=== PATIENT | male | born 1965 | race Caucasian/White ===

== ENCOUNTER 2019-09-14 09:36 | Inpatient (IN) ==
--- OUTSIDE RECORDS SUMMARY | 2019-09-14 09:38 | External Medical Summary | Continuity of Care Document ---
:1965 Author Name Daniele Bills Address Unavailable Unavailable , Care Team Providers Name Role Phone Karmen Bills Unavailable [email or web address] Unavailable Unavailable Unavailable Unavailable Unavailable Assessments Assessed Problems:Bilateral inguinal hernia Problems Bilateral inguinal hernia (550.92) (K40.20) Allergies and Adverse Reactions No Known Drug Allergies (Allergy) Medications [id number] 5000 MG Oral Packet Start: 03-Feb-2014 Refills: 0 Procedures Procedures not documented Immunizations Immunizations not documented Family History Unknown Family Member Family history of Diabetes Mellitus (V18.0) Status: Active Comments: Family History Social History - Smoking Status Never smoker Interventions Discussion/SummaryPost-operative inguinal herniorrhaphy. The patient is doing well, no problems reported and the patient is satisfied. We discussed resumption of normal activities/return to work type of issues. Follow up will be prn. Plan of Treatment Planned Observations Planned Goals not documented Results No Known Results Results not documented Encounters Appointment; Raymond Peraza M.D. 05-May-2014 11:00 Encounter Diagnosis: Problem not documented
[2019-09-14] MEDS ORDERED: SODIUM CHLORIDE 0.9% 1000ML 1,000 ML IV ONE (10:08)
[2019-09-14 10:53] LABS: Basophils # (auto) 0.04 K/uL (0-0.2); Basophils % (auto) 0.5 %; Eosinophils # (auto) 0.02 K/uL (0-0.5); Eosinophils % (auto) 0.2 %; Hematocrit (blood only) 50.6 % (42-52); Hemoglobin 18.5 g/dL (14.0-18.0); Immature Granulocytes # (auto) 0.04 K/uL (0.00-0.02); Immature Granulocytes % (auto) 0.5 %; Lymphocytes # (auto) 0.99 K/uL (1.2-3.4); Lymphocytes % (auto) 11.5 %; Mean Corpuscular Hemoglobin 33.4 pg (25-34); Mean Corpuscular Hgb Conc 36.6 g/dL (32-36); Mean Corpuscular Volume 91.3 fL (80-100); Mean Platelet Volume 9.3 fL (7.4-10.4); Monocytes # (auto) 0.55 K/uL (0.11-0.59); Monocytes % (auto) 6.4 %; Neutrophils # (auto) 6.96 K/uL (1.4-6.5); Neutrophils % (auto) 80.9 %; Platelet Count 226 K/uL (130-400); RDW Coefficient of Variation 12.6 % (11.5-14.5); RDW Standard Deviation 42.4 fL (36.4-46.3); Red Blood Count 5.54 M/uL (4.7-6.1)
[2019-09-14 11:17] LABS: Albumin Level 4.1 gm/dl (3.4-5.0); BUN Creatinine Ratio 11.5 (10-20); Calcium 9.3 mg/dl (8.5-10.1); Creatinine Clr Calc Pharmacy 91.6 ml/min; Est GFR (African American) 71.7; Est GFR (Non-African American) 61.9; Potassium 3.9 mmol/L (3.5-5.1)
[2019-09-14 11:20] LABS: Albumin Globulin Ratio 1.1 (0.9-2); Bilirubin,Total 0.4 mg/dl (0.2-1); Globulin 3.9 gm/dl (2.5-4.0)
[2019-09-14] MEDS ORDERED: IOVERSOL 100ml IV PRN (11:44)
--- NOTE | 2019-09-14 12:07 | CT Scan Report ---
ABDOMEN AND PELVIS CT WITH IV CONTRAST CT DOSE: 1577.65 mGy.cm HISTORY: L buttock induration/erythema to lower back TECHNIQUE: Multiaxial CT images of the abdomen and pelvis were performed following the use of intrave nous contrast. A dose lowering technique was utilized adhering to the principles of ALARA. COMPARISON STUDY: None. FINDINGS: The lung bases are clear. No pneumoperitoneum. No pneumatosis. No suspicious lytic are melissa tic osseous lesions. Tiny fat-containing supraumbilical hernia. Hepatic steatosis. The gallbladder, s pleen, pancreas, and adrenal glands are unremarkable. No retroperitoneal lymphadenopathy. A 1 cm exop hytic intermediate density lesion within the interpolar region of the left kidney best seen on image 194. This is indeterminate and could represent a complex cyst or renal mass. Right-sided nephrolithia sis with the largest stone within the lower pole measuring 7 mm. No ureteral stones. No hydronephrosi s. Normal bladder. Subcentimeter inguinal lymph nodes do not meet CT criteria for pathologic involvem ent. A few colonic diverticula. No evidence for diverticulitis. No bowel wall thickening or obstructi on. Normal appendix. Mild lower back, gluteal, and inguinal subcutaneous fat stranding with mild left gluteal skin thickening. No loculated fluid collections to suggest an abscess. No radiopaque foreign bodies. No soft tissue masses. IMPRESSION: 1. Mild lower back, gluteal, and inguinal subcutaneous fat stranding with mild left gluteal skin thi ckening. No loculated fluid collections to suggest an abscess. No radiopaque foreign bodies. No soft tissue masses. This is nonspecific and could be due to a diffuse edematous state or cellulitis. 2. A 1 cm exophytic intermediate density lesion within the left kidney. This could represent a hyperd ense cyst or renal mass. Follow-up nonemergent renal ultrasound is recommended for further evaluation . 3. Right-sided nephrolithiasis. No hydronephrosis. Electronically signed by: Stephan Rios M.D. 09/14/2019 12:05 PM
[2019-09-14] MEDS ORDERED: VANCOMYCIN CONSULT ACTIVE PRN ×2 (12:58→14:05)
[2019-09-14] MEDS ORDERED: PIPERACILLIN/TAZOBACTAM 4.5 GM/120 ML BAG IV ONE (12:58)
[2019-09-14] MEDS ORDERED: PIPERACILL/TAZOBAC CONSULT ACTIVE PRN ×2 (12:58→14:05)
[2019-09-14] MEDS ORDERED: VANCOMYCIN HCL 2,750 MG in SODIUM CHLORIDE 0.9% 500 ML IV ONE (12:58)
--- NOTE | 2019-09-14 13:26 | History & Physical Report ---
Date of Service September 14, 2019 Assessment & Plan (1) Cellulitis and abscess of buttock: (2) HTN (hypertension): (3) Obesity (BMI 30-39.9): (4) Renal mass: Check sonogram of the kidneys. (5) Cellulitis: We will start the patient on IV Zosyn and vancomycin. Check blood cultures. Consult infectious disease. Add subcu heparin for DVT prophylaxis. We will add IV hydralazine PRN basis for uncontrolled hypertension. We will repeat labs in a.m. CODE STATUS full code History of Present Illness Chief Complaint: Swelling and redness of the lower back Primary Care Provider: Jose Etienne DO The patient is 54 years old obese male who is complaining of lower back redness/ swelling and pain for last 3 days. His symptoms have been progressive. He was seen at urgent care center yesterday and started on oral Bactrim and Keflex ; today he went back again for follow-up to the urgent care -[facility] and he was advised to go to the ER as his cellulitis was extending. In the ER, he was started on IV antibiotics and will be admitted for further evaluation and management. He denies any fever. No purulent discharge. No history of insect bite. No history of trauma. No prior history of any similar episode of cellulitis. His blood pressure is running high in the ER. Allergies Allergy/AdvReac Type Severity Reaction Status Date / Time bee venom protein (honey bee) Allergy Intermediate SWELLING Verified 09/14/19 10:28 Home Medications Home Medications Medication Instructions Recorded Confirmed Type cephalexin [Keflex] 500 mg PO TID 09/14/19 09/14/19 History cinnamon bark [Cinnamon] 500 mg PO DAILY 09/14/19 09/14/19 History mupirocin [Centany] 1 applic TOPICAL TID 09/14/19 09/14/19 History omega 9-tzk-xte-fish oil [Fish Oil] 2 cap PO DAILY 09/14/19 09/14/19 History sulfamethoxazole-trimethoprim 1 tab PO BID 09/14/19 09/14/19 History [Bactrim DS] Past Med/Surg History Family History Mother Diabetes Social History Feels Safe at Home: Yes Smoking Status: Never smoker Review of Systems Review of Systems: All systems reviewed & are unremarkable except as noted in HPI & below Integumentary: + rash, + erythema and + change in skin color Psychiatric: + anxiety Physical Exam Physical Exam: GENERAL : No acute distress EYES: No icterus, gaze conjugate NOSE: No evidence of epistaxis MOUTH: No lesions or candidiasis, mucosa moist NECK: Supple LUNGS: CTA B/L, no wheezes, rales or rhonchi HEART: Regular, rate controlled ABDOMEN: Soft, NT, ND, BS Present EXTREMITIES: No LE edema, pedal pulses intact NEURO: A&OX3 Constitutional: + obese and cooperative Skin: + rash, + induration and + erythema Extensive cellulitis of the lower back noted extending to the buttock area Results & Data Vital Signs (Past 12 Hours) Vital Signs Temp Pulse Pulse Resp BP BP Pulse Ox 09/14/19 12:00 91 H 20 186/91 H 98 09/14/19 09:48 98.2 F 105 H 20 193/104 H 97 Laboratory Results 09/14/19 10:37 09/14/19 10:37 09/14/19 09/14/19 09/14/19 Range/Units 10:48 10:37 10:37 WBC 8.60 (4.8-10.8) K/uL RBC 5.54 (4.7-6.1) M/uL Hgb 18.5 H (14.0-18.0) g/dL Hct 50.6 (42-52) % MCV 91.3 (80-100) fL MCH 33.4 (25-34) pg MCHC 36.6 H (32-36) g/dL RDW Std Deviation 42.4 (36.4-46.3) fL RDW Coeff of Cristy 12.6 (11.5-14.5) % Plt Count 226 (130-400) K/uL MPV 9.3 (7.4-10.4) fL Immature Gran % (Auto) 0.5 % Neut % (Auto) 80.9 % Lymph % (Auto) 11.5 % Gilliam % (Auto) 6.4 % Eos % (Auto) 0.2 % Baso % (Auto) 0.5 % Immature Gran # (Auto) 0.04 H (0.00-0.02) K/uL Neut # (Auto) 6.96 H (1.4-6.5) K/uL Lymph # (Auto) 0.99 L (1.2-3.4) K/uL Gilliam # (Auto) 0.55 (0.11-0.59) K/uL Eos # (Auto) 0.02 (0-0.5) K/uL Baso # (Auto) 0.04 (0-0.2) K/uL Sodium 137 (136-145) mmol/L Potassium 3.9 (3.5-5.1) mmol/L Chloride 105 (98-107) mmol/L Carbon Dioxide 23 (21-32) mmol/L Anion Gap 9.0 (3-11) BUN 15 (7-18) mg/dl Creatinine 1.30 (0.6-1.4) mg/dl Est Cr Clr Drug Dosing 91.6 ml/min Est GFR ( Amer) 71.7 Est GFR (Non-Af Amer) 61.9 BUN/Creatinine Ratio 11.5 (10-20) Glucose 164 H (70-99) mg/dl POC Lactic Acid Josh 2.83 H (0.90-1.70) mmol/L Calcium 9.3 (8.5-10.1) mg/dl Total Bilirubin 0.4 (0.2-1) mg/dl AST 42 H (15-37) U/L ALT 85 H (12-78) U/L Alkaline Phosphatase 91 (45-117) U/L Total Protein 8.0 (6.4-8.2) gm/dl Albumin 4.1 (3.4-5.0) gm/dl Globulin 3.9 (2.5-4.0) gm/dl Albumin/Globulin Ratio 1.1 (0.9-2) Diagnostic Findings ABDOMEN AND PELVIS CT WITH IV CONTRAST CT DOSE: 1577.65 mGy.cm HISTORY: L buttock induration/erythema to lower back TECHNIQUE: Multiaxial CT images of the abdomen and pelvis were performed followi ng the use of intravenous contrast. A dose lowering technique was utilized adhering to the principles of ALARA. COMPARISON STUDY: None. FINDINGS: The lung bases are clear. No pneumoperitoneum. No pneumatosis. No suspicious lytic are blastic osseous lesions. Tiny fat-containing supraumbilical hernia. Hepatic steatosis. The gallbladder, spleen, pancreas, and adrenal glands are unremarkable. No retroperitoneal lymphadenopathy. A 1 cm exophytic intermediate density lesion within the interpolar region of the left kidney best seen on image 194. This is indeterminate and could represent a complex cyst or renal mass. Right-sided nephrolithiasis with the largest stone within the lower pole measuring 7 mm. No ureteral stones. No hydronephrosis. Normal bladder. Subcentimeter inguinal lymph nodes do not meet CT criteria for pathologic involvement. A few colonic diverticula. No evidence for diverticulitis. No bowel wall thickening or obstruction. Normal appendix. Mild lower back, gluteal, and inguinal subcutaneous fat stranding with mild left gluteal skin thickening. No loculated fluid collections to suggest an abscess. No radiopaque foreign bodies. No soft tissue masses. IMPRESSION: 1. Mild lower back, gluteal, and inguinal subcutaneous fat stranding with mild left gluteal skin thickening. No loculated fluid collections to suggest an abscess. No radiopaque foreign bodies. No soft tissue masses. This is nonspecific and could be due to a diffuse edematous state or cellulitis. 2. A 1 cm exophytic intermediate density lesion within the left kidney. This could represent a hyperdense cyst or renal mass. Follow-up nonemergent renal ultrasound is recommended for further evaluation. 3. Right-sided nephrolithiasis. No hydronephrosis Code Status & VTE Plan Code Status Full code VTE Prophylaxis Plan VTE Prophylaxis will be ordered: Yes PG Care Time/CCT Total # of Minutes Spent Total Time Spent with Patient: Total time spent is greater than 50% in coordination of care (as documented) at patient's floor/unit and/or counseling patient:
[2019-09-14] MEDS ORDERED: ACETAMINOPHEN 325 MG TAB PO PRN (14:05)
[2019-09-14] MEDS ORDERED: HydrALAZINE HCL 20 MG/ML VIAL IV PRN (14:05)
[2019-09-14] MEDS ORDERED: ZOLPIDEM TARTRATE 5 MG TAB PO PRN (14:05)
[2019-09-14] MEDS ORDERED: PIPERACILLIN/TAZOBACTAM 3.375 GM in DEXTROSE 5% 100 ML IV SCH (14:05)
[2019-09-14] MEDS ORDERED: VANCOMYCIN HCL 1,000 MG in SODIUM CHLORIDE 0.9% 250 ML IV SCH (14:05)
--- NOTE | 2019-09-14 15:40 | Ultrasound Report ---
RENAL ULTRASOUND HISTORY: Renal mass, renal stone COMPARISON: Abdomen and pelvis CT 09/14/2019. FINDINGS: Right kidney: 12.4 cm. A 7 mm stone within the lower pole. No hydronephrosis. Normal corticomedullary differentiation and cortical thickness. Left kidney: 11.6 cm. An 8 mm exophytic interpolar hypoechoic lesion which likely corresponds to the CT finding. This is difficult to characterize due to its small size. No hydronephrosis. Normal cortic omedullary differentiation and cortical thickness. Bladder: No bladder wall thickening. The bilateral ureteral jets were identified. The prostate gland is mildly enlarged measuring 5.5 cm. IMPRESSION: 1. Right-sided nephrolithiasis. No hydronephrosis. 2. An 8 mm exophytic interpolar hypoechoic lesion which likely corresponds to the CT finding. This is difficult to characterize due to its small size. Follow-up nonemergent MRI recommended for further e valuation. Electronically signed by: Stephan Rios M.D. 09/14/2019 3:38 PM
[2019-09-14] MEDS: HEPARIN SOD 5,000 UNIT/0.5 ML VIAL SQ SCH ×2 (15:56→21:36)
[2019-09-14] MEDS: KETOROLAC TROMETHAMINE 10 MG TABLET PO SCH ×2 (16:10→21:11)
[2019-09-14] MEDS: LISINOPRIL/HCTZ 10/12.5MG TAB PO SCH (16:47)
--- NOTE | 2019-09-14 16:58 | Pharmacy Report ---
Pharmacy Abx Initial Consult - Date of Service September 14, 2019 - Pharmacy Dosing Scope Date of Consult: 09/14/19 Consultation requested by: Dr. Hargrove Pharmacy is consulted to initiate Vancomycin IV dosing therapy, order appropriate labs and adjust drug dose/frequency. - Subjective The patient is a 54 year old M admitted on 09/14/19 13:15. - Objective Height: 6 ft Weight: 131.2 kg Vital Signs (Past 12hrs): Vital Signs Temp Pulse Pulse Pulse Resp BP BP 09/14/19 15:40 36.8 C 86 20 156/95 H 09/14/19 15:12 172/97 H 09/14/19 14:22 36.7 C 83 16 153/100 H 09/14/19 12:00 91 H 20 186/91 H 09/14/19 09:48 36.8 C 105 H 20 193/104 H Pulse Ox 09/14/19 15:40 95 09/14/19 15:12 09/14/19 14:22 97 09/14/19 12:00 98 09/14/19 09:48 97 Lab Results (24hrs): Laboratory Tests (24 Hours) 09/14/19 09/14/19 10:37 10:37 WBC 8.60 Neut # (Auto) 6.96 H Creatinine 1.30 Est Cr Clr Drug Dosing 91.6 Micro Results: 09/14/19 13:25 Aerobic Blood Culture - Pending Blood Anaerobic Blood Culture - Pending 09/14/19 13:30 Aerobic Blood Culture - Pending Blood Anaerobic Blood Culture - Pending - Risk Factors for Resistance * Antimicrobial use within the last 90 days: Bactrim and Keflex - Assessment & Plan Assessment 54 year old M presenting to the ER with lower back redness, swelling and pain that started 3 days ago. Was seen at urgent care yesterday and was started on Keflex and Bactrim. Cellulitis began to spread. Plan Vancomycin and Zosyn for treatment of cellulitis Vancomycin IV * Estimated PK Parameters: Vd 0.61 L/kg, Trevor 0.08 hr-1, t1/2 8.7 hr * Loading dose: 2750 mg (21 mg/kg) * Maintenance dose: 1500 mg IV (11 mg/kg) every 10 hours * Goal trough level for cellulitis: 15 to 20 mcg/mL * Trough level ordered for 10/22/19 at 0330 Piperacillin/tazobactam * 4.5 g bolus administered over 30 minutes, then 4.5 g IV extended infusion every 8 hours for CrCl greater than 20 mL/min * Aggressive dosing selected due to BMI 35 or more Pharmacy will continue to follow and will adjust dose/frequency as necessary. Thank you.
--- NOTE | 2019-09-14 18:10 | Emergency Department Note ---
History of Present Illness General Chief complaint: Back Injury/Pain Stated complaint: LOWER BACK PAIN Time Seen by Provider: 09/14/19 10:01 History of Present Illness 54-year-old male who presents to emergency department for evaluation of progressively worsening pain in the lower back and buttock. The patient reports that he noticed an itch on the left buttock on Sunday. By yesterday afternoon, his reports that he started to develop redness over the area. The patient was seen at the [facility] last evening, and provided a prescription for Keflex 500 mg three times daily, and Bactrim DS one pill twice daily. The patient did take the Keflex and Bactrim DS last night before going to bed. When he awoke this morning, the reports progressively worsening pain. The patient went back to the [facility] urgent [facility] for recheck, and they reported that the infection was worsening, and recommended that he come to the emergency department for further evaluation. The patient denies any fevers or chills. He denies any known history of MRSA. He cannot recall any other injury to the buttock, and denies any prior history of boils or abscesses. He rates his discomfort a 3 out of 10 on my initial exam. Home Medications Home Medications Medication Instructions Recorded Confirmed Type cephalexin [Keflex] 500 mg PO TID 09/14/19 09/14/19 History cinnamon bark [Cinnamon] 500 mg PO DAILY 09/14/19 09/14/19 History mupirocin [Centany] 1 applic TOPICAL TID 09/14/19 09/14/19 History omega 6-mjx-snq-fish oil [Fish Oil] 2 cap PO DAILY 09/14/19 09/14/19 History sulfamethoxazole-trimethoprim 1 tab PO BID 09/14/19 09/14/19 History [Bactrim DS] Allergies Allergy/AdvReac Type Severity Reaction Status Date / Time bee venom protein (honey bee) Allergy Intermediate SWELLING Verified 09/14/19 10:28 Past Med/Surg History Medical History Renal mass Obesity (BMI 30-39.9) HTN (hypertension) Surgical History No significant past surgical history Family History Mother Diabetes Social History (Reviewed 09/14/19 @ 17:58 by Apolinar Jesus Preferred Language: Citizen Of [place] Communication Ability: Effective Event Decorator Required: No Beliefs That Will Affect Care: None marital status: Current Living Situation: Spouse current occupational status: employed Feels Safe at Home: Yes Smoking Status: Never smoker Hx Alcohol Use: No Hx Substance Use: No Review of Systems 10 system review was performed and was negative except for pertinent positives and negatives as indicated in history of present illness Physical Exam Vital Signs Vital Signs - 24 hr 09/14/19 09:48 09/14/19 12:00 Temperature 36.8 C Temperature Source Oral Sepsis Recent Fever Within 48 Hours No Sepsis Action Taken by Nursing No Action Required Pulse Rate 105 H Pulse Rate [Finger] 91 H Respiratory Rate 20 20 Respiratory Effort / Characteristics Non-Labored Spontaneous Non-Labored Spontaneous Respiratory Depth Normal Normal Respiratory Pattern Regular Blood Pressure 193/104 H Blood Pressure [Right Arm] 186/91 H Blood Pressure Mean 133 Blood Pressure Mean [Right Arm] 122 Blood Pressure Position [Right Arm] Lying Pulse Oximetry 97 98 Oxygen Delivery Method Room Air Room Air CONSTITUTIONAL: Healthy and well nourished. Alert and oriented X 3. Patient does not appear in any acute distress. HEENT: Normocephalic, atraumatic. Pupils equal, round and reactive. No scleral icterus or conjunctival injection/pallor. NECK: Full active range of motion without discomfort. RESPIRATORY: Clear to auscultation bilaterally with no wheezing, crackles, rhonchi or stridor. CARDIOVASCULAR: Regular rate and rhythm with no murmurs, rubs or gallops. GASTROINTESTINAL: Bowel sounds present in all quadrants. Abdomen is soft and nontender to palpation. MUSCULOSKELETAL: Full range of motion of all joints without discomfort. INTEGUMENTARY: Examination shows notable induration of the left medial upper buttock region. There is also significant overriding erythema of the majority of the left buttock. No obvious induration or fluctuance within the pilonidal region. The erythema extends onto the lower lumbar region. The entire region is warm and tender to palpation. HEMATOLOGIC: No ecchymosis or petechiae. PSYCHIATRIC: With attempted discussion regarding the patient's physical exam findings and condition, he gives snarky comments. His is constantly telling him to behave in order to undergo appropriate treatment. NEUROLOGIC: No focal neurologic deficits noted. Course Patient history and physical exam were performed. Nurse's notes were reviewed. Vital signs were reviewed, showing an elevated blood pressure of 193/104. He is otherwise afebrile and not tachycardic. Because of concern for intravenous access and CT imaging of the region to look for an abscess. As indicated in the physical exam section, the patient was snarky throughout this entire conversation, with his chiding the patient. Eventually relented and agreed to further work-up. IV access was established, and labs were drawn. The juan j ent refused any analgesics. Review of labs shows a left shift and bandemia without leukocytosis. A acvbc-yn-[id number] lactate was elevated at 2.83, with mild elevation of liver transaminases. Blood cultures x2 were ordered. CT of the abdomen and pelvis with IV contrast shows a notable cellulitis of the buttock and back region without evidence for abscess or fluid collection. The case was further discussed with Dr. Floyd, ED attending physician, who also examined the patient. I also discussed the case with Daisy, our ED pharmacist, regarding whether he met criteria for dalbavancin treatment. Although the patient does not meet criteria for dalbavancin use because of a rapidly advancing infection, I am also concerned that the patient will refuse admission for IV antibiotics. Laboratory and CT findings were discussed with the patient, again expressing concern for this infection. After the patient and argued [id number], the patient finally relented to hospitalist evaluation and intravenous antibiotics. The patient was administered IV Zosyn and vancomycin. The case was further discussed with the [facility] hospitalist service. Please see their dictations for further treatment and final disposition. Administered Medications Lisinopril/HCTZ (Prinzide 10/12.5mg) 1 tab PO QAM SAMANTHA Stop: 10/14/19 14:59 Last Admin: 09/14/19 16:47 Dose: Not Given Documented by: [id number] Heparin Sodium (Porcine) (Heparin Sodium (Porcine)) 5,000 units SQ Q8 SAMANTHA Stop: 10/14/19 14:29 Last Admin: 09/14/19 15:56 Dose: Not Given Documented by: [id number] Ketorolac Tromethamine (Toradol) 10 mg PO TID SAMANTHA Stop: 09/19/19 14:29 Last Admin: 09/14/19 16:10 Dose: 10 mg Documented by: [id number] Discontinued Medications Sodium Chloride (Nss 1000ml) 1,000 mls @ 999 mls/hr IV .Q1H1M ONE Stop: 09/14/19 11:08 Last Infusion: 09/14/19 11:57 Dose: 0 mls/hr Documented by: [id number] Admin: 09/14/19 10:55 Dose: 999 mls/hr Documented by: [id number] Piperacillin Sod/Tazobactam Sod (Zosyn) 4.5 gm in 120 mls @ 240 mls/hr IV NOW ONE Stop: 09/14/19 13:27 Last Infusion: 09/14/19 14:12 Dose: 0 mls/hr Documented by: [id number] Admin: 09/14/19 13:42 Dose: 240 mls/hr Documented by: [id number] Vancomycin HCl 2,750 mg/ (Sodium Chloride) 555 mls @ 200 mls/hr IV NOW ONE Stop: 09/14/19 15:44 Last Infusion: 09/14/19 16:47 Dose: 0 mls/hr Documented by: [id number] Admin: 09/14/19 13:43 Dose: 200 mls/hr Documented by: [id number] Ioversol (Optiray 320 100ml) 92 ml IV ONCE PRN PRN Reason: Interaction Checking Stop: 09/18/19 11:43 Last Admin: 09/14/19 11:45 Dose: 92 ml Documented by: [id number] Medical Decision Making Medical Records Attestation: I reviewed the patient's medical records. Home Medications Current Medication List: was personally reviewed by me Laboratory Data Attestation: I reviewed the patient's lab results. Result diagrams: 09/14/19 10:37 09/14/19 10:37 Lab Results 09/14/19 09/14/19 09/14/19 Range/Units 10:37 10:37 10:48 WBC 8.60 (4.8-10.8) K/uL RBC 5.54 (4.7-6.1) M/uL Hgb 18.5 H (14.0-18.0) g/dL Hct 50.6 (42-52) % MCV 91.3 (80-100) fL MCH 33.4 (25-34) pg MCHC 36.6 H (32-36) g/dL RDW Std Deviation 42.4 (36.4-46.3) fL RDW Coeff of Cristy 12.6 (11.5-14.5) % Plt Count 226 (130-400) K/uL MPV 9.3 (7.4-10.4) fL Immature Gran % (Auto) 0.5 % Neut % (Auto) 80.9 % Lymph % (Auto) 11.5 % [place] % (Auto) 6.4 % Eos % (Auto) 0.2 % Baso % (Auto) 0.5 % Immature Gran # (Auto) 0.04 H (0.00-0.02) K/uL Neut # (Auto) 6.96 H (1.4-6.5) K/uL Lymph # (Auto) 0.99 L (1.2-3.4) K/uL [place] # (Auto) 0.55 (0.11-0.59) K/uL Eos # (Auto) 0.02 (0-0.5) K/uL Baso # (Auto) 0.04 (0-0.2) K/uL Sodium 137 (136-145) mmol/L Potassium 3.9 (3.5-5.1) mmol/L Chloride 105 (98-107) mmol/L Carbon Dioxide 23 (21-32) mmol/L Anion Gap 9.0 (3-11) BUN 15 (7-18) mg/dl Creatinine 1.30 (0.6-1.4) mg/dl Est Cr Clr Drug Dosing 91.6 ml/min Est GFR ( Amer) 71.7 Est GFR (Non-Af Amer) 61.9 BUN/Creatinine Ratio 11.5 (10-20) Glucose 164 H (70-99) mg/dl POC Lactic Acid Josh 2.83 H (0.90-1.70) mmol/L Calcium 9.3 (8.5-10.1) mg/dl Total Bilirubin 0.4 (0.2-1) mg/dl AST 42 H (15-37) U/L ALT 85 H (12-78) U/L Alkaline Phosphatase 91 (45-117) U/L Total Protein 8.0 (6.4-8.2) gm/dl Albumin 4.1 (3.4-5.0) gm/dl Globulin 3.9 (2.5-4.0) gm/dl Albumin/Globulin Ratio 1.1 (0.9-2) Imaging Data Attestation: I personally reviewed and interpreted this imaging study as follows: My Impression: CT of the abdomen and pelvis with IV contrast shows notable thickening of the left gluteus and lower lumbar region. No obvious abscess or fluid collection is appreciated. Radiologist report was also reviewed. Radiologist's Impression: ABDOMEN AND PELVIS CT WITH IV CONTRAST CT DOSE: 1577.65 mGy.cm HISTORY: L buttock induration/erythema to lower back TECHNIQUE: Multiaxial CT images of the abdomen and pelvis were performed following the use of intravenous contrast. A dose lowering technique was utilized adhering to the principles of ALARA. COMPARISON STUDY: None. FINDINGS: The lung bases are clear. No pneumoperitoneum. No pneumatosis. No suspicious lytic are blastic osseous lesions. Tiny fat-containing supraumbilical hernia. Hepatic steatosis. The gallbladder, spleen, pancreas, and adrenal glands are unremarkable. No retroperitoneal lymphadenopathy. A 1 cm exophytic intermediate density lesion within the interpolar region of the left kidney best seen on image 194. This is indeterminate and could represent a complex cyst or renal mass. Right-sided nephrolithiasis with the largest stone within the lower pole measuring 7 mm. No ureteral stones. No hydronephrosis. Normal bladder. Subcentimeter inguinal lymph nodes do not meet CT criteria for pathologic involvement. A few colonic diverticula. No evidence for diverticulitis. No bowel wall thickening or obstruction. Normal appendix. Mild lower back, gluteal, and inguinal subcutaneous fat stranding with mild left gluteal skin thickening. No loculated fluid collections to suggest an abscess. No radiopaque foreign bodies. No soft tissue masses. IMPRESSION: 1. Mild lower back, gluteal, and inguinal subcutaneous fat stranding with mild left gluteal skin thickening. No loculated fluid collections to suggest an abscess. No radiopaque foreign bodies. No soft tissue masses. This is nonspecific and could be due to a diffuse edematous state or cellulitis. 2. A 1 cm exophytic intermediate density lesion within the left kidney. This could represent a hyperdense cyst or renal mass. Follow-up nonemergent renal ultrasound is recommended for further evaluation. 3. Right-sided nephrolithiasis. No hydronephrosis. Blood Pressure Blood Pressure Findings: Elevated blood pressure Blood Pressure Disposition: further management by hospitalist [facility] Narrative She presents with a concerning worsening cellulitis of the buttock and lower back region. CT of the abdomen and pelvis with IV contrast does not show any obvious fluid or abscess collection. Patient does have a mildly elevated lactate. Blood cultures are currently pending. I do feel that the patient warrants further hospital evaluation and IV antibiotics for his condition. Exam and vital signs are not consistent with sepsis at this time. Impression & Plan Cellulitis and abscess of buttock, Cellulitis of lower back Discharge Plan Visit Data *Final* Discharge Date/Time: 09/14/19 13:46 Chief Complaint: Back Injury/Pain Stated Complaint: LOWER BACK PAIN ED Provider: Willard Floyd ED Midlevel Provider: Apolinar Miguel Discharge Problem: Cellulitis and abscess of buttock, Cellulitis of lower back Patient Disposition: Admitted As Inpatient Discharge Instructions Interventions: ED Discharge Assessment Last Done: 09/14/19 13:46
[2019-09-14] MEDS: PIPERACILLIN/TAZOBACTAM 4.5 GM in DEXTROSE 5% 100 ML IV SCH (18:39)
[2019-09-14] MEDS: LACTOBACILLUS ACIDOPHILUS 1 GM PACK PO SCH (18:40)
[2019-09-14] MEDS: VANCOMYCIN HCL 1,500 MG in SODIUM CHLORIDE 0.9% 500 ML IV SCH (21:11)
[2019-09-15] MEDS: PIPERACILLIN/TAZOBACTAM 4.5 GM in DEXTROSE 5% 100 ML IV SCH ×3 (01:58→18:12)
[2019-09-15 05:10] LABS: Hematocrit (blood only) 44.8 % (42-52); Mean Corpuscular Hgb Conc 35.7 g/dL (32-36); Mean Corpuscular Volume 92.4 fL (80-100); Mean Platelet Volume 9.4 fL (7.4-10.4); Platelet Count 190 K/uL (130-400); RDW Coefficient of Variation 12.8 % (11.5-14.5); Red Blood Count 4.85 M/uL (4.7-6.1); White Blood Count 8.77 K/uL (4.8-10.8)
[2019-09-15] MEDS: HEPARIN SOD 5,000 UNIT/0.5 ML VIAL SQ SCH ×3 (05:45→21:21)
[2019-09-15 05:47] LABS: BUN Creatinine Ratio 11.7 (10-20); Calcium 8.5 mg/dl (8.5-10.1); Creatinine Clr Calc Pharmacy 93.1 ml/min; Est GFR (African American) 73.7; Est GFR (Non-African American) 63.6
[2019-09-15] MEDS: VANCOMYCIN HCL 1,500 MG in SODIUM CHLORIDE 0.9% 500 ML IV SCH (07:42)
[2019-09-15] MEDS: LACTOBACILLUS ACIDOPHILUS 1 GM PACK PO SCH ×3 (07:43→16:59)
[2019-09-15] MEDS: KETOROLAC TROMETHAMINE 10 MG TABLET PO SCH ×3 (08:53→21:22)
[2019-09-15] MEDS: LISINOPRIL/HCTZ 10/12.5MG TAB PO SCH (08:53)
--- NOTE | 2019-09-15 10:45 | Infectious Disease Consult ---
Date of Consultation September 15, 2019 Assessment & Plan (1) Cellulitis of lower back: continue zosyn, will change vanco to dapto emperically as I suspect adequate vanco trough will be difficult in this patient. will follow. History of Present Illness Attending Physician: Enrique Ulloa pt admitted with worsening buttock cellulitis. he states he was having itching in left buttock/low back area starting on Sunday, scrathced until he had bleeding, denies insect bite. no f/c. had redness and pain, went to urgent care, given keflex and bactrim, took 2-3 doses and followed back at urgent care, increased redness, suggested he go to ER. In ER pt had ct scan showing cellulitis but no abscess. he was started on zosyn and vanco and admitted. wbc 8.7, creat 1.2 blood cultures pending. tolerating abx well. no abd pain, no n/v/d. no cp, sob, cough. no pain in back but does admit to being sore, denies any additional bleeding or drainage, not itching currently. denies f/c. afebrile since admission. Anxious to go home. Allergies Allergy/AdvReac Type Severity Reaction Status Date / Time bee venom protein (honey bee) Allergy Intermediate SWELLING Verified 09/14/19 10:28 Home Medications Home Medications Medication Instructions Recorded Confirmed Type cephalexin [Keflex] 500 mg PO TID 09/14/19 09/14/19 History cinnamon bark [Cinnamon] 500 mg PO DAILY 09/14/19 09/14/19 History mupirocin [Centany] 1 applic TOPICAL TID 09/14/19 09/14/19 History omega 7-aup-fcx-fish oil [Fish Oil] 2 cap PO DAILY 09/14/19 09/14/19 History sulfamethoxazole-trimethoprim 1 tab PO BID 09/14/19 09/14/19 History [Bactrim DS] Patient History Medical History Renal mass Obesity (BMI 30-39.9) HTN (hypertension) Surgical History No significant past surgical history Family History Mother Diabetes Social History Preferred Language: Romanian Communication Ability: Effective Decorative Greens Cutter Required: No Beliefs That Will Affect Care: None marital status: Current Living Situation: Spouse current occupational status: employed Feels Safe at Home: Yes Smoking Status: Never smoker Hx Alcohol Use: No Hx Substance Use: No Review of Systems Review of Systems: All systems reviewed & are unremarkable except as noted in HPI & below Physical Exam Constitutional: WD/WN, vitals as above Eyes: PERRL, conjunctivae normal, anicteric sclerae ENMT: external ear and nose normal, oropharynx normal Neck: normal visual inspection Respiratory: normal respiratory effort, lungs clear to auscultation Cardiovascular: RRR, no murmur, no edema Gastrointestinal (Abdomen): normal bowel sounds, soft, nontender, no hepatosplenomegaly Musculoskeletal: no cyanosis or clubbing, extremities motor strength 5/5 Skin: + ecchymosis (b/l buttock ) and + erythema (erythema, warmth including buttocks b/l and low back.) Psychiatric: A+Ox3, euthymic affect Results & Data Vital Signs (Past 12 Hours) Vital Signs Temp Pulse Pulse Resp BP BP Pulse Ox 09/15/19 08:50 78 174/92 H 09/15/19 07:34 36.9 C 78 16 172/115 H 98 09/15/19 07:00 36.9 C 78 20 172/115 H 166/104 H 98 09/14/19 23:32 36.7 C 79 18 155/91 H 97 PG Care Time/CCT Total # of Minutes Spent Total Time Spent with Patient: Total time spent is greater than 50% in coordination of care (as documented) at patient's floor/unit and/or counseling patient:
--- NOTE | 2019-09-15 11:21 | Hospitalist Progress Note ---
Date of Service September 15, 2019 Assessment & Plan (1) Cellulitis and abscess of buttock: * Improving * CT Abd/pelvis 09/14 with evidence of mild lower back/gluteal, and inguinal subcutaneous fat stranding. No loculated fluid to suggest abscess. Nonspecific edematous state vs cellulitis * Zosyn, Vancomycin IV-- per ID, vancomycin switched to Dapto * Infectious disease on consult- appreciate recs * Blood cultures pending * Pain control with toradol, tylenol (2) HTN (hypertension): * Not on any home medications * Lisinopril-HCTZ 10/12.5mg initiated * BP remains elevated at 174/92 * Hydralazine prn * Will continue to monitor (3) Renal mass: * Incidental finding on CT 09/16 * Renal U/S with right sided nephrolithiasis, no hydronephrosis. 8mm exophytic interpolar hypoechoic lesion which likely corresponds to the CT finding. * Follow-up nonemergent MRI recommended for further evaluation. (4) Obesity (BMI 30-39.9): * BMI 39.2 (5) DVT prophylaxis: * Heparin SQ * Encourage ambulation Dispo: continue to monitor progression with IV antibiotics Supervising Physician Co-Signing Physician Notes Attending Attestation: Pt seen/examined, chart reviewed, care plan d/w BEL Yang. I agree w/ the clemons components of her documentation. Pt feels that gluteal redness is improved today. Has had pruritis of same region for some time. 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 VSS no fever gen - obese, NAD skin - gluteal and buttock cellulitis - extensive; in the lower most portion of the gluteal cleft, b/l buttocks, there are 2 symmetric areas of darkened skin with tiny amounts of ulceration likely due to repetitive skin trauma (frequent sitting?); no palpable abscess, nec fasc, etc A/P: buttock/gluteal cellulitis - cont broad-spectrum IV abx. appreciate ID consultation. low threshold for wound care consultation and/or gen surg if anything needs debridement. nothing on prior CT that requires surgical intervention at this time. renal mass - outpt urology f/u. Enrique Ulloa MD Subjective Patient evaluated at bedside this morning. He states he does not have any pain, but does have discomfort in his buttock region from sitting in bed. He states it is itchy on occasion but not painful. He states he believe he was itching the day before the redness began and may have cut himself. The patient states he had only taken one day of the bactrim/keflex from urgent care before being admitted. He states he would really like to go home, but is agreeable to stay and get the infection under control. States he has had increased stress over the past several weeks, as he works for the [employer] and had to work by himself over the past week. He denies any history of diabetes, Crohns, colitis. He confirms he has had some dried blood on his underwear in the region that corresponds with where he scratched. He states he has a history of hemorrhoids. He denies any fevers, chills, chest pain, shortness of breath, abdominal pain, n/v/d. Review of Systems Review of Systems: Constitutional: Denies weight loss, cold or heat intolerance, weakness or fatigue. HEENT: Denies headaches, lightheadedness, acute visual changes, double vision, light sensitivity or syncope, tinnitus, epistaxis, hoarseness, or dysphagia. Pulmonary: Denies shortness of breath, dyspnea with exertion, pain with inspiration, cough, sputum production, or hemoptysis. Cardiovascular: Denies chest pain, palpitations, syncope, edema. GI: Denies abdominal pain, nausea, vomiting, diarrhea, constipation, melena, hematochezia, change in stool color or consistency. : Denies dysuria, discharge, itching, bleeding, hematuria, changes in frequency or urgency, flank pain. MSK/Neuro: Denies any other muscle or joint pain, weakness, paralysis, numbness, or tingling. Skin: Soreness of buttock region from "sitting too long". Physical Exam Constitutional: WD/WN, vitals as above +Visibly anxious Eyes: PERRL, conjunctivae normal, anicteric sclerae ENMT: external ear and nose normal, oropharynx normal Neck: trachea midline, no thyromegaly Respiratory: normal respiratory effort, lungs clear to auscultation Cardiovascular: RRR, no murmur, no edema Gastrointestinal (Abdomen): normal bowel sounds, soft, nontender, no hepatosplenomegaly Musculoskeletal: no cyanosis or clubbing, extremities motor strength 5/5 Skin: Erythema of low back, bilateral buttocks, with induration about gluteal cleft from midline. Excoriation of left cheek approx 2-3 inches long with dried blood and crusting. Some ecchymosis surrounding region of excoriation. No purulent drainage noted. Neurologic: PERRL, EOMI, accommodation nl, no face palsy, no dysarthria Psychiatric: Orientation: alert and oriented x 3 Affect: + anxious affect Genitourinary: no testicular masses, no penis abnormality Results & Data Vital Signs (Past 12 Hours) Vital Signs Temp Pulse Pulse Resp BP BP Pulse Ox 09/15/19 08:50 78 174/92 H 09/15/19 07:34 36.9 C 78 16 172/115 H 98 09/15/19 07:00 36.9 C 78 20 172/115 H 166/104 H 98 09/14/19 23:32 36.7 C 79 18 155/91 H 97 Laboratory Results 09/15/19 09/15/19 09/15/19 Range/Units 06:11 04:46 04:46 WBC 8.77 (4.8-10.8) K/uL RBC 4.85 (4.7-6.1) M/uL Hgb 16.0 (14.0-18.0) g/dL Hct 44.8 (42-52) % MCV 92.4 (80-100) fL MCH 33.0 (25-34) pg MCHC 35.7 (32-36) g/dL RDW Std Deviation 43.0 (36.4-46.3) fL RDW Coeff of Cristy 12.8 (11.5-14.5) % Plt Count 190 (130-400) K/uL MPV 9.4 (7.4-10.4) fL Sodium 139 (136-145) mmol/L Potassium 3.8 (3.5-5.1) mmol/L Chloride 107 (98-107) mmol/L Carbon Dioxide 26 (21-32) mmol/L Anion Gap 6.0 (3-11) BUN 15 (7-18) mg/dl Creatinine 1.27 (0.6-1.4) mg/dl Est Cr Clr Drug Dosing 93.1 ml/min Est GFR ( Amer) 73.7 Est GFR (Non-Af Amer) 63.6 BUN/Creatinine Ratio 11.7 (10-20) Glucose 117 H (70-99) mg/dl Calcium 8.5 (8.5-10.1) mg/dl PG Care Time/CCT Total # of Minutes Spent Total Time Spent with Patient: Total time spent is greater than 50% in coordination of care (as documented) at patient's floor/unit and/or counseling patient:
[2019-09-15] MEDS: DAPTOmycin 400 MG in SYRINGE 0 ML IV SCH (13:33)
[2019-09-16] MEDS: PIPERACILLIN/TAZOBACTAM 4.5 GM in DEXTROSE 5% 100 ML IV SCH ×3 (01:08→17:15)
[2019-09-16] MEDS ORDERED: VANCOMYCIN TROUGH ONE (03:30)
[2019-09-16] MEDS: HEPARIN SOD 5,000 UNIT/0.5 ML VIAL SQ SCH ×2 (05:09→14:01)
[2019-09-16 07:11] LABS: Albumin Globulin Ratio 1.1 (0.9-2); Albumin Level 3.5 gm/dl (3.4-5.0); BUN Creatinine Ratio 13.2 (10-20); Bilirubin,Total 0.8 mg/dl (0.2-1); Calcium 8.7 mg/dl (8.5-10.1); Creatinine Clr Calc Pharmacy 94.6 ml/min; Est GFR (African American) 75.2; Est GFR (Non-African American) 64.9; Globulin 3.1 gm/dl (2.5-4.0); Potassium 3.5 mmol/L (3.5-5.1); Total Protein 6.6 gm/dl (6.4-8.2)
[2019-09-16] MEDS: LACTOBACILLUS ACIDOPHILUS 1 GM PACK PO SCH ×3 (08:17→16:02)
[2019-09-16] MEDS: DAPTOmycin 400 MG in SYRINGE 0 ML IV SCH (08:45)
[2019-09-16] MEDS: KETOROLAC TROMETHAMINE 10 MG TABLET PO SCH ×2 (08:58→14:35)
[2019-09-16] MEDS: LISINOPRIL/HCTZ 10/12.5MG TAB PO SCH (08:59)
--- NOTE | 2019-09-16 10:27 | Hospitalist Progress Note ---
Date of Service September 16, 2019 Assessment & Plan (1) Cellulitis and abscess of buttock: * Improving * CT Abd/pelvis 09/14 with evidence of mild lower back/gluteal, and inguinal subcutaneous fat stranding. No loculated fluid to suggest abscess. Nonspecific edematous state vs cellulitis * Zosyn, Vancomycin IV-- per ID, vancomycin switched to Dapto * Lyme negative * Infectious disease on consult- appreciate recs * Blood cultures pending * Pain control with toradol, tylenol (2) HTN (hypertension): * Not on any home medications * Lisinopril-HCTZ 10/12.5mg initiated * BP remains elevated at 174/92 * Hydralazine prn * Will continue to monitor (3) Renal mass: * Incidental finding on CT 09/16 * Renal U/S with right sided nephrolithiasis, no hydronephrosis. 8mm exophytic interpolar hypoechoic lesion which likely corresponds to the CT finding. * Follow-up nonemergent MRI recommended for further evaluation. (4) Obesity (BMI 30-39.9): * BMI 39.2 (5) DVT prophylaxis: * Heparin SQ * Encourage ambulation Dispo: continue to monitor progression with IV antibiotics Subjective Patient evaluated in the chair this morning. He denies any pain, but states since last night he has been extremely itchy. He states he gets these rashes from time to time during periods of increased stress, but it has never been this bad. He states he has had breakouts of hard, red rashes on his hands, arms (particularly left elbow region) and upper thighs. He states he had been to the family literacy coordinator in the past and given a steroid shot which always seemed to help but sometimes they go away on their own. Originally the patient denied any known insect bite, but thinks he may have been bit by a tick or spider. He states he always gets itchy when he has a tick and his just removed three from their dog yesterday. Of note, the patient states the redness was inside the lines last night, but that there was a period of time where there was a central clearing with red border, and now it is back to spreading outside the lines. He states that stress makes it worse. Review of Systems Review of Systems: Constitutional: Denies weight loss, cold or heat intolerance, weakness or fatigue. HEENT: Denies headaches, lightheadedness, acute visual changes, double vision, light sensitivity or syncope, tinnitus, epistaxis, hoarseness, or dysphagia. Pulmonary: Denies shortness of breath, dyspnea with exertion, pain with inspiration, cough, sputum production, or hemoptysis. Cardiovascular: Denies chest pain, palpitations, syncope, edema. GI: Denies abdominal pain, nausea, vomiting, diarrhea, constipation, melena, hematochezia, change in stool color or consistency. : Denies dysuria, discharge, itching, bleeding, hematuria, changes in frequency or urgency, flank pain. MSK/Neuro: Denies any other muscle or joint pain, weakness, paralysis, numbness, or tingling. Skin: Itchiness of buttock region. Physical Exam Constitutional: WD/WN, vitals as above Eyes: PERRL, conjunctivae normal, anicteric sclerae ENMT: external ear and nose normal, oropharynx normal Neck: trachea midline, no thyromegaly Respiratory: normal respiratory effort, lungs clear to auscultation Cardiovascular: RRR, no murmur, no edema Gastrointestinal (Abdomen): normal bowel sounds, soft, nontender, no hepatosplenomegaly Musculoskeletal: no cyanosis or clubbing, extremities motor strength 5/5 Skin: Erythema of low back, bilateral buttocks, with induration about gluteal cleft from midline, extending beyond demarcation lines. Excoriation of left cheek approx 2-3 inches long with dried blood. Some ecchymosis surrounding region of excoriation. No purulent drainage noted. Neurologic: PERRL, EOMI, accommodation nl, no face palsy, no dysarthria Psychiatric: Orientation: alert and oriented x 3 Affect: + anxious affect Genitourinary: no testicular masses, no penis abnormality Results & Data Vital Signs (Past 12 Hours) Vital Signs Temp Pulse Resp BP Pulse Ox 09/16/19 08:04 36.5 C 69 18 140/80 98 09/15/19 23:22 36.6 C 71 16 137/83 97 Laboratory Results 09/16/19 Range/Units 04:59 Sodium 140 (136-145) mmol/L Potassium 3.5 (3.5-5.1) mmol/L Chloride 107 (98-107) mmol/L Carbon Dioxide 26 (21-32) mmol/L Anion Gap 7.0 (3-11) BUN 17 (7-18) mg/dl Creatinine 1.25 (0.6-1.4) mg/dl Est Cr Clr Drug Dosing 94.6 ml/min Est GFR ( Amer) 75.2 Est GFR (Non-Af Amer) 64.9 BUN/Creatinine Ratio 13.2 (10-20) Glucose 103 H (70-99) mg/dl Calcium 8.7 (8.5-10.1) mg/dl Total Bilirubin 0.8 (0.2-1) mg/dl AST 36 (15-37) U/L ALT 63 (12-78) U/L Alkaline Phosphatase 70 (45-117) U/L Total Protein 6.6 (6.4-8.2) gm/dl Albumin 3.5 (3.4-5.0) gm/dl Globulin 3.1 (2.5-4.0) gm/dl Albumin/Globulin Ratio 1.1 (0.9-2) Specimen Hemolysis PG Care Time/CCT Total # of Minutes Spent Total Time Spent with Patient: Total time spent is greater than 50% in coordination of care (as documented) at patient's floor/unit and/or counseling patient:
[2019-09-16 11:47] LABS: Lyme Ab IgG w/WB Rflx Negative (Negative); Lyme Ab IgM w/WB Rflx Negative (Negative)
[2019-09-16] MEDS ORDERED: predniSONE 20 MG TAB PO STA (13:59)
--- NOTE | 2019-09-16 14:26 | Infectious Disease Progress Nt ---
Date of Service September 16, 2019 Assessment & Plan (1) Cellulitis of lower back: continue zosyn, and dapto while in hospital, upon d/c suggest doxy 100mg po bid x 10 days. also suggested he continue followup with derm. he is agreeable. ok for d/c from ID standpoint. Subjective pt seen in followup, states he is going home later today. no f/c. some intermittent itching but feeling fine at this time. states he has h/o rash similar to this, was previously being followed by derm but has not been for followup in a long time. was previously treated with topicals with + response. tolerating abx, afebrie. blood cultures negative, no labs to review. Review of Systems Review of Systems: All systems reviewed & are unremarkable except as noted in HPI & below Physical Exam Constitutional: WD/WN, vitals as above Eyes: PERRL, conjunctivae normal, anicteric sclerae ENMT: external ear and nose normal, oropharynx normal Neck: normal visual inspection Respiratory: normal respiratory effort, lungs clear to auscultation Cardiovascular: RRR, no murmur, no edema Gastrointestinal (Abdomen): normal bowel sounds, soft, nontender, no hepatosplenomegaly Musculoskeletal: no cyanosis or clubbing, extremities motor strength 5/5 Skin: + ecchymosis (b/l buttock ) and + erythema (erythema, warmth including buttocks b/l and low back.) Psychiatric: A+Ox3, euthymic affect Results & Data Vital Signs (Past 12 Hours) Vital Signs Temp Pulse Resp BP Pulse Ox 09/16/19 08:04 36.5 C 69 18 140/80 98 Laboratory Results Microbiology 09/14/19 13:30 Blood Aerobic Blood Culture - Preliminary No growth in Aerobic bottle after 24 hours. 09/14/19 13:30 Blood Anaerobic Blood Culture - Final 09/14/19 13:25 Blood Aerobic Blood Culture - Preliminary No growth in Aerobic bottle after 24 hours. 09/14/19 13:25 Blood Anaerobic Blood Culture - Final PG Care Time/CCT Total # of Minutes Spent Total Time Spent with Patient: Total time spent is greater than 50% in coordination of care (as documented) at patient's floor/unit and/or counseling patient:
--- NOTE | 2019-09-16 16:24 | Discharge Summary ---
Date of Service September 16, 2019 Admission HPI Per Admitting Provider The patient is 54 years old obese male who is complaining of lower back redness/ swelling and pain for last 3 days. His symptoms have been progressive. He was seen at urgent care center yesterday and started on oral Bactrim and Keflex ; today he went back again for follow-up to the urgent care -[facility] and he was advised to go to the ER as his cellulitis was extending. In the ER, he was started on IV antibiotics and will be admitted for further evaluation and management. He denies any fever. No purulent discharge. No history of insect bite. No history of trauma. No prior history of any similar episode of cellulitis. His blood pressure is running high in the ER. Admission Exam Per Admitting Provider Physical Exam: GENERAL : No acute distress EYES: No icterus, gaze conjugate NOSE: No evidence of epistaxis MOUTH: No lesions or candidiasis, mucosa moist NECK: Supple LUNGS: CTA B/L, no wheezes, rales or rhonchi HEART: Regular, rate controlled ABDOMEN: Soft, NT, ND, BS Present EXTREMITIES: No LE edema, pedal pulses intact NEURO: A&OX3 Constitutional: + obese and cooperative Skin: + rash, + induration and + erythema Extensive cellulitis of the lower back noted extending to the buttock area Principal Diagnosis Cellulitis of buttocks/sacral region Discharge Exam Constitutional WD/WN, vitals as above Eyes PERRL, conjunctivae normal, anicteric sclerae ENMT external ear and nose normal, oropharynx normal Neck trachea midline, no thyromegaly Respiratory normal respiratory effort, lungs clear to auscultation Cardiovascular RRR, no murmur, no edema Gastrointestinal (Abdomen) normal bowel sounds, soft, nontender, no hepatosplenomegaly Musculoskeletal no cyanosis or clubbing, extremities motor strength 5/5 Skin Erythema of low back, bilateral buttocks, with induration about gluteal cleft from midline, extending beyond demarcation lines. Excoriation of left cheek approx 2-3 inches long with dried blood. Some ecchymosis surrounding region of excoriation. No purulent drainage noted. Neurologic PERRL, EOMI, accommodation nl, no face palsy, no dysarthria Psychiatric Orientation: alert and oriented x 3 Affect: + anxious affect Genitourinary no testicular masses, no penis abnormality Discharge Data Allergies Allergy/AdvReac Type Severity Reaction Status Date / Time bee venom protein (honey bee) Allergy Intermediate SWELLING Verified 09/14/19 10:28 Consultations 09/14/19 12:58 ED Decision to Admit Stat 09/14/19 14:05 Consult Infectious Diseases Routine 09/16/19 15:30 Consult [facility] bottle assembler Routine Ordered Studies 09/14/19 10:[address] WITH IV CONTRAST FINDINGS: The lung bases are clear. No pneumoperitoneum. No pneumatosis. No suspicious lytic are blastic osseous lesions. Tiny fat-containing supraumbilical hernia. Hepatic steatosis. The gallbladder, spleen, pancreas, and adrenal glands are unremarkable. No retroperitoneal lymphadenopathy. A 1 cm exophytic intermediate density lesion within the interpolar region of the left kidney best seen on image 194. This is indeterminate and could represent a complex cyst or renal mass. Right-sided nephrolithiasis with the largest stone within the lower pole measuring 7 mm. No ureteral stones. No hydronephrosis. Normal bladder. Subcentimeter inguinal lymph nodes do not meet CT criteria for pathologic involvement. A few colonic diverticula. No evidence for diverticulitis. No bowel wall thickening or obstruction. Normal appendix. Mild lower back, gluteal, and inguinal subcutaneous fat stranding with mild left gluteal skin thickening. No loculated fluid collections to suggest an abscess. No radiopaque foreign bodies. No soft tissue masses. IMPRESSION: 1. Mild lower back, gluteal, and inguinal subcutaneous fat stranding with mild left gluteal skin thickening. No loculated fluid collections to suggest an absce ss. No radiopaque foreign bodies. No soft tissue masses. This is nonspecific and could be due to a diffuse edematous state or cellulitis. 2. A 1 cm exophytic intermediate density lesion within the left kidney. This could represent a hyperdense cyst or renal mass. Follow-up nonemergent renal ultrasound is recommended for further evaluation. 3. Right-sided nephrolithiasis. No hydronephrosis. 09/14/19 14:05 US renal/blad retro comp Routine FINDINGS: Right kidney: 12.4 cm. A 7 mm stone within the lower pole. No hydronephrosis. Normal corticomedullary differentiation and cortical thickness. Left kidney: 11.6 cm. An 8 mm exophytic interpolar hypoechoic lesion which likely corresponds to the CT finding. This is difficult to characterize due to its small size. No hydronephrosis. Normal corticomedullary differentiation and cortical thickness. Bladder: No bladder wall thickening. The bilateral ureteral jets were identified. The prostate gland is mildly enlarged measuring 5.5 cm. IMPRESSION: 1. Right-sided nephrolithiasis. No hydronephrosis. 2. An 8 mm exophytic interpolar hypoechoic lesion which likely corresponds to the CT finding. This is difficult to characterize due to its small size. Follow- up nonemergent MRI recommended for further evaluation. Hospital Course (1) Cellulitis and abscess of buttock: * CT Abd/pelvis 09/14 with evidence of mild lower back/gluteal, and inguinal subcutaneous fat stranding. No loculated fluid to suggest abscess. Nonspecific edematous state vs cellulitis. Patient with history of rashes on his hands, left arm, upper thigh, etc in times of increased stress. Patient treated intermittently by dermatology with a steroid injection with improvement, however patient states he has not been following with dermatology in a while. * Zosyn, Vancomycin IV-- per ID, vancomycin switched to Dapto while inpatient. Discharged on Doxy 100mg BID x 10 days per ID. Lyme and blood cultures negative. Afebrile. * Patient with evidence of satellite lesions prior to discharge and was given nystatin cream. * Patient found to be hypertensive on admission, requiring prn hydralazine with BPs continuing to be elevated into the 170s/90+. Combination anti-hypertensive therapy initiated with Lisinopril-HCTZ 10/12.5mg. (2) HTN (hypertension): * As above (3) Renal mass: * Incidental finding on CT 09/16 * Renal U/S with right sided nephrolithiasis, no hydronephrosis. 8mm exophytic interpolar hypoechoic lesion which likely corresponds to the CT finding. * Follow-up nonemergent MRI recommended for further evaluation. * Follow-up with Urology as outpatient rec (4) Obesity (BMI 30-39.9): * BMI 39.2 (5) DVT prophylaxis: * Heparin SQ, Ambulation Total Time Total Time Spent Total Time Spent (In Minutes): 60 Discharge Plan Discharge Items Patient Disposition: Home - Self-Care Reason For Visit: CELLUITIS Discharge Diagnosis: Cellulitis vs Fungal Goals: To prevent spread of infection To better control high blood pressure Decrease anxiety Activity: Resume your previous activity Non-emergency contact: Primary Care Provider Call non-emergency contact if: you have any medication questions, your symptoms worsen, you have a fever and your wound has increased redness Follow-up/Referrals: Jose Etienne, [Primary Care Provider] - 09/18/19 10:30 am (Please, follow up at Dr. Etienne's office with his associate, Dr. Humberto Garcia, on September 18 at 10:30 am. *If you need to change this appointment, call their office at [phone].) Diet: Heart Healthy Addtl Attending Provider Instructions: You are being discharged with a prescription for doxycyline to treat your cellulitis, for a total of ten days. -It is recommended that you take as prescribed and do not miss any doses. You are also being sent with a prescription for Vistaril (hydroxyzine) for itch/anxiety. -You make take this every six hours as needed. Please be aware you may feel drowsy- please use discretion while driving or operating machinery. In regards to possible fungal infection, you are also being given a prescription for Nystatin cream. You should apply this to the affected area three times daily for ten days. It is important to keep these areas clean and dry, to prevent recurrence of "jock itch". Recommended loose fitting clothing, cotton. Pat areas dry with towel after showering or with increased sweat. Your blood pressure has been elevated throughout your stay. You were initiated on lisinopril-hctz as an anti-hypertensive medication. Please take this as prescribed, and re-evaluated at your primary care office for further titration of the dose. It is recommended that you see your primary care within the next 48 hours to monitor for improvement; if you are not contacted tomorrow morning, please give Dr. Etienne's office a call. You should also follow-up with DERMATOLOGY, at the discretion of primary care, for continuing intermittent rash. During your admission, you were found to have an incidental renal mass on imaging. It is recommended that you follow-up with UROLOGY to have a non- emergent MRI as an outpatient for follow-up. Please report to the ER if you notice any further spread, fever, chills, or signs of infection, or with any signs or symptoms that are concerning for you. Thank you very much for the opportunity to take part in your care during this h ospitalization. It has been a pleasure. Pending Studies at Discharge: No Stand-Alone Forms: My [facility], Work/School Release (Inpt), Smoking Cessation Medications and DC Order Prescriptions: New hydroxyzine HCl 25 mg Tablet 25 mg PO Q6 PRN (Reason: itching) Qty: 20 RF: 0 doxycycline hyclate 100 mg capsule 100 mg PO BID 10 Days Qty: 20 RF: 0 lisinopril-hydrochlorothiazide [Zestoretic] 10-12.5 mg Tablet 1 tab PO QAM 30 Days Qty: 30 RF: 0 nystatin 100,000 unit/gram cream 1 appln TOP TID Qty: 15 RF: 0 Continued mupirocin [Centany] 2 % ointment 1 applic topical TID RF: 0 cinnamon bark [Cinnamon] 500 mg Capsule 500 mg PO DAILY RF: 0 omega 2-giy-ynn-fish oil [Fish Oil] 1,000 mg (120 mg-180 mg) Capsule 2 cap PO DAILY RF: 0 Discontinued sulfamethoxazole-trimethoprim [Bactrim DS] 800-160 mg tablet 1 tab PO BID RF: 0 cephalexin [Keflex] 500 mg capsule 500 mg PO TID RF: 0 Discharge Orders: Discharge Order (Routine); Ordered 09/16/19 Ordered By: Tiffany Douglass/Other Patient Handouts: ED Infec Skin Cellulitis Admission Data Admit Date/Time: 09/14/19 13:15 Attending Provider: Enrique Ulloa Admit Provider: Pablo Hargrove Primary Care Provider: Jose Etienne Other Providers: Veto Velez ; Pablo Hargrove Other Interventions: Discharge Summary Assessment (RN) Last Done: 09/16/19 16:49 DC Date/Time DO NOT enter until pt leaves facility: 09/16/19 17:52 Supervising Physician Co-Signing Physician Notes Attending Attestation and Discharge Note: Pt seen/examined, chart reviewed, discharge care plan d/w BEL Yang. I agree w/ the clemons components of her discharge summary. 54yo male with buttock/sacral cellulitis. s/p IV abx since admission w/ clinical improvement. ID recommending 10-day course of PO doxy at d/c. He reports significant pruritis -- exam shows likely "satellite" lesions at periphery of rash/erythema which may suggest element of candidiasis. He has h/o HTN but was not taking meds pre-hospital - was initiated on meds this admission with some improvement. Discharge exam: gen - obese, NAD heart - RRR lungs - CTA b/l skin - resolving erythema involving both buttocks with extension to the gluteal cleft and sacral region along with outer posterior aspects of both hip regions; there are satellite lesions b/l surrounding periphery of rash; centrally on both medial buttocks there are 2 small areas of what looks like skin/soft tissue injury and tiny amounts of macerated skin/ulceration; no drainage or purulence A/P: 1. buttock/sacral cellulitis - improved; doxy x 10 days 2. candidal rash of sacrum/buttocks - nystatin TID x 10 days. 3. sitz baths daily for 1-2 weeks. 4. avoid sweating, tight briefs, etc - this is likely promoting #2. 5. soft tissue injury buttocks - avoid frequent sitting (does so now with his job); sitz baths. 6. HTN - FERNANDO-HCTZ; adjust as outpatient. 7. renal mass - urology referral. Enrique Ulloa MD
== END 2019-09-16 17:52 | disposition home or self-care (01) | DRG 603 ==
LOC: ED 09:36 → 3W 13:15 → SUATTDRO 13:15 → 3W 13:46